=== PATIENT | female | born 1950 | race Caucasian/White ===

== ENCOUNTER 2021-01-16 09:19 | Outpatient (CLI) | payer MEDICARE, SELFPAY ==
--- NOTE | 2021-01-16 17:22 | WPDPFTINT ---
PFT Interpretation This is a pulmonary function test with spirometry, plethysmography and diffusing capacity. The test was performed and results interpreted in accordance with the 2019 and 2005 ATS/ERS Task Force guidelines respectively using the Global Lung Function Initiative-2012 reference equations. Patient demonstrated good effort and cooperation. Reproducibility criteria were met. The quality of the spirometry maneuver was Grade A. Findings: Spirometry: The contour the inspiratory and expiratory flow tracing are normal. The FVC is 2.41 L, 96% predicted. The FEV1 is 1.77 L, 91% predicted. The FEV1: FVC ratio is 74%. Plethysmography: The total lung capacity is 4.33 L, 94% predicted. Functional residual capacity is 2.33 L, 89% predicted. The residual volume is 1.86 L, 89% predicted. Diffusing capacity: The absolute diffusion capacity is 13.8, 73% predicted. The diffusing capacity corrected for alveolar volume is 3.83, 87% predicted. Impression: The spirometry is normal without evidence of an obstructive abnormality. The lung volumes are normal. The diffusing capacity is normal. There are no prior studies for comparison PFT Procedure Performed PFT Procedure Performed Plethysmography (Lung Vol) Diffusing Cap (DLCO) Spirometry w/o Bronchodil
== END 2021-01-16 09:20 | disposition home or self-care (01) ==
PROVIDERS: PCP Family Medicine; Visit Provider Internal Medicine Cardiovascular Disease
DX: R06.00 Dyspnea, unspecified (principal); F17.201 Nicotine dependence, unspecified, in remission
CPT/HCPCS: 94375; 94726; 94729

== ENCOUNTER 2021-11-02 07:34 | Outpatient (CLI) | payer MEDICARE, SELFPAY ==
--- NOTE | ~2021-11-02 | MR_ITS ---
EXAMINATION: MR brain/brain stem wo/w con DATE: 11/02/2021 09:31 INDICATION: Other symptoms and signs involving the nervous system. Confusion. TECHNIQUE: Magnetic resonance imaging (MRI) of the brain and brainstem was performed without and with 18 mL MultiHance intravenous contrast. Sequences included sagittal and axial T1-weighted FSE, axial diffusion-weighted FS EPI, axial T2*-weighted GRE, axial T2-weighted FLAIR Propeller, and axial T2-we ighted Propeller. Postcontrast sequences included axial, sagittal, and coronal T1-weighted FSE. Appar ent diffusion coefficient (ADC) maps were created. COMPARISON: None. FINDINGS: There are scattered areas of nonspecific increased T2-weighted signal intensity in the cere bral white matter. There is no intracranial hemorrhage, acute infarction, or abnormal intracranial ma ss lesion. The ventricles are normal in size. The paranasal sinuses are clear. The orbits are normal. The mastoid air cells are normal. IMPRESSION: 1. Mild nonspecific cerebral white matter disease, which likely represents chronic small vessel ische michelle disease. 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
--- NOTE | ~2021-11-02 | US_ITS ---
EXAMINATION: US carotid duplex BI DATE: 11/02/2021 08:10 INDICATION: Subjective visual disturbance. Speech and language deficit. Memory trouble. Dizziness. TECHNIQUE: Grayscale, color Doppler, and pulsed Doppler images of the cervical carotid arteries were obtained. The degree of vessel stenosis is placed in one of the following categories: normal, <50%, 5 0-69%, >=70% but less than near-occlusion, near-occlusion, or total occlusion. Note that percent sten osis relative to normal distal artery lumen diameter is indirectly measured from velocity measurement s as described by Bassam, et al. Radiology 2003; [id number]. COMPARISON: None. FINDINGS: RIGHT: The right common carotid artery (CCA) peak systolic velocity (PSV) is 89 cm/s. The right internal car otid artery (ICA) PSV is 102 cm/s. The right ICA end-diastolic velocity (EDV) is 16 cm/s. The right I CA/CCA PSV ratio is 1.1. Grayscale and color Doppler images yield an estimate of <50% diameter reduct ion from plaque in the ICA. The external carotid artery (ECA) PSV is 156 cm/s. There is antegrade jessica w in the right vertebral artery. LEFT: The left CCA PSV is 136 cm/s. The left ICA PSV is 89 cm/s. The left ICA EDV is 13 cm/s. The left ICA/ CCA PSV ratio is 0.7. Grayscale and color Doppler images yield an estimate of <50% diameter reduction from plaque in the ICA. The ECA PSV is 113 cm/s. There is antegrade flow in the left vertebral arter y. IMPRESSION: 1. <50% stenosis in the right internal carotid artery. 2. <50% stenosis in the left internal carotid artery. 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
[2021-11-02 08:36] LABS: Estimated Glomerular Filt Rate > 60
[2021-11-02 09:45] LABS: Estimated Glomerular Filt Rate > 60
== END 2021-11-02 07:35 | disposition home or self-care (01) ==
PROVIDERS: PCP Family Medicine; Visit Provider Physician Assistant Medical
DX: R29.818 Other symptoms and signs involving the nervous system (principal); R41.89 Other symptoms and signs involving cognitive functions and awareness; R93.0 Abnormal findings on diagnostic imaging of skull and head, not elsewhere classified; I65.23 Occlusion and stenosis of bilateral carotid arteries
CPT/HCPCS: 70553; 93880; A9577

== ENCOUNTER → 2022-01-22 01:28 | Outpatient (CLI) | payer MEDICARE, SELFPAY ==
[2022-01-22 11:29] LABS: SARS-CoV-2 RNA PCR Negative
== END ==
PROVIDERS: PCP Family Medicine; Visit Provider Internal Medicine Gastroenterology
DX: Z01.812 Encounter for preprocedural laboratory examination (principal); Z20.822 Contact with and (suspected) exposure to COVID-19
CPT/HCPCS: C9803; U0003; U0005

== ENCOUNTER 2022-01-25 01:43 | Day surgery (SDC) | payer MEDICARE, SELFPAY ==
[2022-01-14 09:16] VITALS: BMI 40.6
[2022-01-25 11:18] VITALS: BP 143/59; PULSE 76; RESP 18; TEMP 36.9; O2SAT 97
--- NOTE | 2022-01-25 11:26 | WPDGICN ---
Assessment and Plan Assessment and plan (1) Morbid obesity: Code(s): E66.01 - Morbid (severe) obesity due to excess calories Status: Acute (2) Occult blood in stools: Code(s): R19.5 - Other fecal abnormalities Status: Acute Assessment and Plan: Patient found to have occult blood in stools. This along with anemia. Plan is for GI endoscopy. Anemia identified in October iron indices most consistent with anemia of chronic disease . Anemia now improved on most recent laboratory testing in December. (3) Anemia: Code(s): D64.9 - Anemia, unspecified Status: Acute (4) Heartburn: Code(s): R12 - Heartburn Status: Acute Assessment and Plan: Patient with chronic heartburn. She is not on treatment. Given her anemia and occult blood in stools an EGD will be performed today. GI Consult Note Consult date/time: 01/25/22 11:26 HPI: Madelyn Dang is a 71 year old female Presents today for both colonoscopy an EGD. Patient reports in October and early November she was admitted the hospital with a urinary tract infection felt to be septic and was very confused. During that stay she was found to be anemic. Iron indices consistent with anemia of chronic disease. Patient did have stool Hemoccult that was positive on several occasions. When she presents today for GI endoscopy to evaluate for source of anemia and occult blood loss. Patient denies any visible obvious blood that she has ever seen. She does have a long history of heartburn. In this may have intensified recently. She treats it with no specific medications. She has attributed that to stress and emotional anxiety. Her family history is noncontributory. Previous colonoscopy 2018 revealed diverticulosis. Family history is noncontributory. Patient currently has good mentation appears to have improved after her urinary tract infection. Review of Systems Review of Systems: All systems reviewed & are unremarkable except as noted in HPI and below PMFSH Family History Family History Sibling Diabetes mellitus Family history of malignant neoplasm of breast in first degree relative, Onset Age: 57 Father Family history of glaucoma, Onset Age: 53 Acute myocardial infarction, Onset Age: 53 Mother Hypertension Grandparent Carcinoma of colon, Onset Age: 60 Social History Social History (Updated 11/17/21 @ 11:59 by Landy Vaughan [facility]) Smoking packs per day: 1 Smoking cigarettes per day: 20.0 Years smoked: 60 Smoking pack-years: 60.00 Smoking status: Former smoker Tobacco type: cigarettes Alcohol intake: never Substance use: never Substance use type: does not use Living arrangements: with family Spiritual care concerns: No Meds Home Medications and Allergies Home Medications Medication Instructions Recorded Confirmed Type atorvastatin 40 mg tablet 40 mg PO DAILY 11/01/19 01/14/22 History metoprolol tartrate 25 mg tablet 25 mg PO BID tablet 11/01/19 01/14/22 History Blood Pressure Kit #1 ea NS 10/16/20 01/14/22 Rx OneTouch Ultra Blue Test Strip See Rx Instructions .ROUTE 11/13/20 01/14/22 Rx .COMPLEX #100 strip NS aspirin 81 mg tablet,delayed 81 mg PO DAILY 10/27/21 01/14/22 History release metformin 500 mg tablet,extended 500 mg PO BID #180 tablet 11/03/21 01/14/22 Rx release 24 hr Grassfed Beef Brain 500 mg PO DAILY 01/14/22 01/14/22 History Grassfed Beef Spleen 3,000 mg PO DAILY 01/14/22 01/14/22 History ymnrprxe-yqvgn-siron-CF borate 2 tablet PO DAILY 01/14/22 01/14/22 History [Move Free [facility]] lisinopril 10 mg PO DAILY 01/14/22 01/14/22 History turmeric 450 mg PO DAILY 01/14/22 01/14/22 History Allergies Allergy/AdvReac Type Severity Reaction Status Date / Time No Known Allergies Allergy Verified 01/25/22 11:16 Vital Signs Vital Signs - 24 hr 01/25/22 11:18 Tempera
[2022-01-25] MEDS: LACTATED RINGERS 1,000 ML 150 ML IV CONT (11:31)
[2022-01-25 11:38] LABS: Glucose Point of Care 155 mg/dl (65-105)
--- NOTE | 2022-01-25 11:38 | WPDANESEPPF ---
Anes - Initial Pre Proc Eval Procedure: Operation Date: 01/25/22 12:30 Proposed Procedures p Esophagogastroduodenoscopy & Colonoscopy - Lavelle Mares MD Date/Time: 01/25/22 11:38 Surgeon: Lavelle Mares MD Pre Op Diagnosis: STEPHANIE, occult GI bleed Patient Data Age: 71 Gender: F Height: 1.52 m Weight: 93.6 kg Last Vital Signs Temp 98.5 F 01/25/22 11:18 Pulse 76 01/25/22 11:18 Resp 18 01/25/22 11:18 BP 143/59 H 01/25/22 11:18 Pulse Ox 97 01/25/22 11:18 Allergies Allergy/AdvReac Type Severity Reaction Status Date / Time No Known Allergies Allergy Verified 01/25/22 11:16 Home Medications Medication Instructions Recorded Confirmed Type atorvastatin 40 mg tablet 40 mg PO DAILY 11/01/19 01/25/22 History metoprolol tartrate 25 mg tablet 25 mg PO BID tablet 11/01/19 01/25/22 History Blood Pressure Kit #1 ea NS 10/16/20 01/25/22 Rx OneTouch Ultra Blue Test Strip See Rx Instructions .ROUTE 11/13/20 01/25/22 Rx .COMPLEX #100 strip NS aspirin 81 mg tablet,delayed 81 mg PO DAILY 10/27/21 01/25/22 History release metformin 500 mg tablet,extended 500 mg PO BID #180 tablet 11/03/21 01/25/22 Rx release 24 hr Grassfed Beef Brain 500 mg PO DAILY 01/14/22 01/25/22 History Grassfed Beef Spleen 3,000 mg PO DAILY 01/14/22 01/25/22 History xlnarlmr-uxkbo-zrwuf-CF borate 2 tablet PO DAILY 01/14/22 01/25/22 History [Move Free [employer]] lisinopril 10 mg PO DAILY 01/14/22 01/25/22 History turmeric 450 mg PO DAILY 01/14/22 01/25/22 History Patient hx anesthesia problems: none Family hx anesthesia problems: none Results Review: All pre-operative results and documents have been reviewed as part of the pre-operative evaluation. [facility] Family History Family History Sibling Diabetes mellitus Family history of malignant neoplasm of breast in first degree relative, Onset Age: 57 Father Family history of glaucoma, Onset Age: 53 Acute myocardial infarction, Onset Age: 53 Mother Hypertension Grandparent Carcinoma of colon, Onset Age: 60 Social History Social History (Updated 11/17/21 @ 11:59 by Landy Vaughan [facility]) Smoking packs per day: 1 Smoking cigarettes per day: 20.0 Years smoked: 60 Smoking pack-years: 60.00 Smoking status: Former smoker Tobacco type: cigarettes Alcohol intake: never Substance use: never Substance use type: does not use Living arrangements: with family Spiritual care concerns: No Anes - Eval Final PreProcedure Day of Procedure 01/25/22 11:38 Patient weight: morbidly obese Heart: regular rate and rhythm Lungs: clear to auscultation Airway: Mallampati scale class 1 Neurological: alert and oriented Last oral intake: >/= 8 hours ASA classification: III Emergent: no Anesthetic plan: proceed Anesthesia type and monitoring: general and standard monitoring Results Review: All pre-operative results and documents have been reviewed as part of the pre-operative evaluation. Informed Consent: The patient's anesthetic plan and its attendant risks and benefits were discussed with the patient/family/POA. Questions were solicited and answers provided to the satisfaction of the patient/family/POA.
--- NOTE | 2022-01-25 11:46 | WPDANESEFPP ---
Anes - Eval Final PreProcedure Day of Procedure 01/25/22 11:46 Patient weight: morbidly obese Heart: regular rate and rhythm Lungs: decreased breath sounds Airway: Mallampati scale class II Neurological: alert and oriented Last oral intake: >/= 8 hours ASA classification: III Emergent: no Anesthetic plan: proceed Anesthesia type and monitoring: general GIVS and standard monitoring Results Review: All pre-operative results and documents have been reviewed as part of the pre-operative evaluation. Informed Consent: The patient's anesthetic plan and its attendant risks and benefits were discussed with the patient/family/POA. Questions were solicited and answers provided to the satisfaction of the patient/family/POA.
[2022-01-25 12:19] VITALS: BP 135/64; PULSE 75; RESP 21
[2022-01-25 12:29] VITALS: BP 115/60; PULSE 66; RESP 14
[2022-01-25 12:39] VITALS: BP 129/63; PULSE 69; RESP 16
== END 2022-01-25 12:46 | disposition home or self-care (01) ==
PROVIDERS: PCP Family Medicine; Visit Provider Internal Medicine Gastroenterology
PROC: 0DJ08ZZ Inspection of Upper Intestinal Tract, Via Natural or Artificial Opening Endoscopic (ICD-10-PCS; CPT 43235; principal; 2022-01-25 12:30)
DX: D64.9 Anemia, unspecified (principal); D12.5 Benign neoplasm of sigmoid colon; K92.1 Melena; K64.8 Other hemorrhoids; K21.00 Gastro-esophageal reflux disease with esophagitis, without bleeding; Z79.84 Long term (current) use of oral hypoglycemic drugs; Z79.82 Long term (current) use of aspirin; Z87.891 Personal history of nicotine dependence; E66.01 Morbid (severe) obesity due to excess calories; Z68.41 Body mass index [BMI] 40.0-44.9, adult
CPT/HCPCS: 45380; 43235; 82948; 88305; C9803; J2704; J7120; U0003; U0005